=== PATIENT | male | born 1940 | race Caucasian/White ===

== ENCOUNTER → 2018-01-14 | Outpatient (CLI) | payer OTHER ==
[~2018-01-14] MED LIST: ALBUAER3 INH; AMIT25TA9 PO; CARV6.252 PO; GUAI100S5; PLAV75TA29 PO; ROSU40 PO; TRAM50TA PO
--- NOTE | 2018-01-17 09:43 | RSPPFT ---
DATE OF PROCEDURE: 01/14/18 COMMENTS: VOLUMES DYNAMIC: FVC and FEV1 moderately reduced. STATIC: FRC, RV and TLC moderately reduced. FLOWS: FEV1% mildly reduced; FEF 25-75 severely reduced. DIFFUSION: Normal. FLOW VOLUME LOOP: Restrictive configuration. IMPRESSION: Moderately severe restrictive ventilatory defect with no reduction in diffusion and no significant hyperinflation. There is no improvement post-bronchodilator.
== END ==
LOC: PHRSP 10:21
PROVIDERS: ATTEND Family Medicine
DX: J44.9 Chronic obstructive pulmonary disease, unspecified (principal)
CPT/HCPCS: 36600; 82805; 94060; 94618; 94726; 94729